=== PATIENT | female | born 1995 | race Caucasian/White ===

== ENCOUNTER 2020-07-19 11:29 | Emergency (ER) | payer BC ==
[~2020-07-19] VITALS: Ht 170.2 cm; Wt 83.9 kg
[2020-07-19 11:59] LABS: URINE BILIRUBIN NEGATIVE (Negative); URINE BLOOD NEGATIVE (Negative); URINE CLARITY CLEAR; URINE COLOR YELLOW; URINE GLUCOSE-RANDOM* NEGATIVE (Negative); URINE KETONES NEGATIVE (Negative); URINE NITRITE-REFLEX NEGATIVE (Negative); URINE PROTEIN (DIPSTICK) NEGATIVE (Negative); URINE UROBILINOGEN 0.2 E.U./dl (0.2-1.0)
[2020-07-19 12:00] LABS: URINE LEUKOCYTES-REFLEX 1+ (Negative)
[2020-07-19 12:09] LABS: BACTERIA-REFLEX None Seen /HPF (None Seen); CASTS None Seen /LPF (None Seen); CRYSTALS None Seen /LPF (None Seen); SQUAMOUS 4-10 Moderate /LPF (0-3); URINE RBC None Seen /HPF (0-2); URINE WBC-REFLEX 0-5 Rare /HPF (0-5)
[2020-07-19 12:28] LABS: ABSOLUTE NEUTROPHILS 5.3 thou/uL (1.4-8.2); BASOPHILS 0.8 % (0.0-2.0); EOSINOPHILS 1.4 % (0.0-3.0); HEMATOCRIT 37.9 % (37.0-47.0); HEMOGLOBIN 12.9 gm/dL (12.0-15.0); LYMPHOCYTES 27.6 % (24.0-44.0); MCH 29.4 pg (26.0-34.0); MCHC 34.1 g/dL (28.0-37.0); MCV 86.1 fL (80.0-100.0); MONOCYTES 6.1 % (1.0-8.0); PLATELET COUNT 309 thou/uL (150-400); POLYS 64.1 % (36.0-66.0); RDW 12.9 % (10.5-14.5); WBC 8.2 thou/uL (4.0-11.0)
[2020-07-19 12:36] LABS: CALCIUM 8.6 mg/dL (8.5-10.1); CREATININE 0.7 mg/dL (0.6-1.0); POTASSIUM 3.8 mmol/L (3.5-5.1)
[2020-07-19 12:41] LABS: ALBUMIN 3.9 g/dL (3.4-5.0); TOTAL BILIRUBIN 0.4 mg/dL (0.2-1.0); TOTAL PROTEIN 7.2 g/dL (6.4-8.2)
[2020-07-19] MEDS ORDERED: PROAIR HFA8.5 GM INH (14:46)
[2020-07-19] MEDS ORDERED: PROMETH-CODEIN 65 ML PO (14:46)
[2020-07-19 14:49] VITALS: BP 103/65
--- NOTE | 2020-07-20 08:24 | EKG ---
[facility] [place] [address] ELECTROCARDIOGRAM REPORT Name: MORENITA DALEY Room #: [facility]P [id number] Admission: 07/19/20 Attend Phys: Discharge: 07/19/20 Date of : [birth year] Report #: [id number] THIS REPORT FOR: cc: RASHIDA - Bee family physician/PCP RASHIDA - Bee family physician/PCP Fernando Sharma MD [facility] THIS REPORT FOR: //name// [facility] ED Test Date: 2020-07-19 Test Time: 12:07:08 Pat Name: MORENITA DALEY Department: Room: Gender: F Sane Nurse: : 1995 Requested By: Brandon Osman Order Number: [id number] MD: Fernando Sharma Measurements Intervals Nelson Rate: 82 P: 60 TX: 146 QRS: 23 QRSD: 102 T: 25 QT: 391 QTc: 457 Interpretive Statements Sinus rhythm Normal tracing No previous ECG available for comparison Electronically Signed On 07-20-2020 8:24:12 CDT by Fernando Sharma [email or web address] <ELECTRONICALLY SIGNED> By: Fernando Sharma MD, [facility] 07/20/2024 D: [id number] Fernando Sharma MD, FAC /EPI
== END 2020-07-19 14:49 | disposition home or self-care (01) ==
LOC: ER 11:29
PROVIDERS: Physician Assistant
DX: R10.84 Generalized abdominal pain (principal); R06.02 Shortness of breath; Z20.828 Contact with and (suspected) exposure to other viral communicable diseases; R07.9 Chest pain, unspecified; R05 Cough; M79.10 Myalgia, unspecified site; R53.83 Other fatigue; J45.909 Unspecified asthma, uncomplicated; F17.210 Nicotine dependence, cigarettes, uncomplicated